=== PATIENT | female | born 1990 | race Caucasian/White ===

== ENCOUNTER 2016-07-17 03:08 | Emergency (ER) | payer OTHER ==
--- NOTE | 2016-07-17 03:13 | PDOC ---
History of Present Illness - General Chief Complaint: Pain Stated Complaint: RIB PAIN Time Seen by Provider: 07/17/16 03:12 - History of Present Illness Initial Comments: This otherwise healthy 25-year-old woman presents with several day history of right chest wall pain. Patient states that 4 days prior to admission, she felt pain in the lateral mid right chest wall while coughing. The following day, the patient had her usual workout at the gym Patient has a history of nonproductive cough (smokes approximately 4 cigarettes per day) .. No history of fever/wheezing/shortness of breath/upper respiratory infection symptoms. Since the onset of the pain, she has had pain in the same area with movement and deep breathing. Patient denies trauma to the area either prior to onset of pain or subsequently. Patient was socializing with friends tonight; she states she frequently smokes more than normal while socializing and has done so tonight. She felt increased pain in the area and friends convinced her to come to the emergency room for evaluation Story of asthma or other chronic respiratory issues. Past History - Past Medical History Allergies/Adverse Reactions: Allergies Allergy/AdvReac Type Severity Reaction Status Date / Time No Known Drug Allergies Allergy Verified 07/17/16 03:10 raw vegetable Allergy Verified 07/17/16 03:09 Home Medications: Ambulatory Orders NK [No Known Home Medication] 07/17/16 Review of Systems - Review of Systems Able to Perform ROS?: Yes Comments:: 12 point review of systems is negative except for what is noted in the history of present illness *Physical Exam - Physical Exam Comments: GENERAL: Young adult female, alert and oriented 3, in no respiratory distress HEAD: Normal with no signs of trauma. EYES: PERRLA, EOMI, sclera anicteric, conjunctiva clear. ENT: Ears normal, nares patent, oropharynx clear without exudates. Dry mucous membranes. NECK: Normal range of motion, supple without lymphadenopathy, JVD, or masses. LUNGS: Breath sounds equal, clear to auscultation bilaterally. No wheezes, rubs or crackles CHEST WALL: Moderate tenderness right fifth intercostal space mid axillary line ; no crepitus or step offs palpated No other chest wall tenderness HEART:Regular rate and rhythm, normal S1 and S2 without murmur, rub or gallop. ABDOMEN:.normal bowel sounds No guarding,tenderness or rebound.No masses No distention. EXTREMITIES: Normal range of motion, no edema. No clubbing or cyanosis. No erythema, or tenderness. NEUROLOGICAL: Cranial nerves II through XII grossly intact. Normal speech. No focal neurological deficits. MUSCULOSKELETAL: Back non-tender to palpation, no CVA tenderness SKIN: Warm, Dry, normal turgor, no rashes or lesions noted Progress Note - Progress Note Progress Note: 25-year-old female smoker, otherwise healthy, presents with area of tenderness of the right lateral chest wall. Area also is painful with movement and deep breathing. Onset of pain was with coughing 4 days ago. Patient has had no shortness of breath/fever or wheezing. Exam reveals oxygenation of 100% on room air; patient has no evidence of respiratory distress . There is an an area of tenderness in the fifth intercostal space right side midaxillary line. There is no crepitus or step offs and no rubs in the area. Exam is otherwise normal. Clinical presentation most consistent with chest wall/intercostal muscle strain. The patient will be given 600 mg of ibuprofen by mouth now. She should avoid upper body strenuous exercise for the next week. She can take nonsteroidal anti-inflammatory medications or acetaminophen as needed for pain. She should return to the emergency room if she has severe pain or shortness of breath. Otherwise, she should follow-up with her PMD, Dr. Zuniga on TuesdayJuly 21 *DC/Admit/Observation/Transfer Diagnosis at time of Disposition: Muscle strain of chest wall Qualifiers: Encounter type: initial encounter Qualified Code(s): S29.011A - Strain of muscle and tendon of front wall of thorax, initial encounter - Discharge Dispostion Disposition: HOME Condition at time of disposition: Stable - Referrals Referrals: Daniele Zuniga MD [Primary Care Provider] - 07/21/16 - Patient Instructions Printed Discharge Instructions: Muscle Strain Additional Instructions: Avoid strenuous upper body exercise for the next week Avoid smoking Local warmth to area Ibuprofen/naproxen/acetaminophen as needed for pain Follow-up with Dr. Zuniga within the next 4-5 days Return to ER if you have severe pain or shortness of breath
[2016-07-17 03:24] VITALS: BP 126/89; PULSE 106; TEMP 98; BMI 24.4
[2016-07-17] MEDS ORDERED: IBUPROFEN 600 MG TABLET (FP) PO ONE ×2 (03:32→03:33)
== END 2016-07-17 03:38 | disposition home or self-care (01) ==
LOC: FER 03:08
DX: S29.011A Strain of muscle and tendon of front wall of thorax, initial encounter (principal); X58.XXXA Exposure to other specified factors, initial encounter; Y93.9 Activity, unspecified; Y92.9 Unspecified place or not applicable; F17.210 Nicotine dependence, cigarettes, uncomplicated
CPT/HCPCS: 99282-25

== ENCOUNTER 2016-07-17 16:55 | Emergency (ER) | payer BC, OTHER ==
[2016-07-17 17:01] VITALS: BP 119/87; PULSE 77; TEMP 98.1; BMI 24.7
--- NOTE | 2016-07-17 17:06 | PDOC ---
History of Present Illness <Abram Adams - Last Filed: 07/17/16 17:16> - General History Source: Patient Exam Limitations: No Limitations - History of Present Illness Initial Comments: 07/17/16 17:14 The patient is a 25 year old female with no significant past medical history, who is revisiting the ER from last night. She complains of worsening right sided rib pain that began Tuesday. Patient states the pain is intermittent and worsens with any type of movement or talking. Patient states she had a bad cough two weeks ago that lasted about a week. She states the pain first began then but was not as severe. Patient states she had a fever 3 days ago as well. Patient denies chills, abdominal pain, nausea, vomiting, diarrhea, hematochezia. Denies dysuria, frequency, hematuria. <Sai Sumner - Last Filed: 07/17/16 17:21> - General Chief Complaint: Pain Stated Complaint: RT RIBCAGE PAIN Time Seen by Provider: 07/17/16 17:01 Past History - Reproductive History Is Patient Now?: No - Psycho/Social/Smoking Cessation Hx Anxiety: No Suicidal Ideation: No Smoking History: Current every day smoker Have you smoked in the past 12 months: Yes Number of Cigarettes Smoked Daily: 4 Information on smoking cessation initiated: Yes 'Breaking Loose' booklet given: 07/17/16 Hx Alcohol Use: Yes (social) <Abram Adams - Last Filed: 07/17/16 17:16> <Sai Sumner - Last Filed: 07/17/16 17:21> - Past Medical History Allergies/Adverse Reactions: Allergies Allergy/AdvReac Type Severity Reaction Status Date / Time No Known Drug Allergies Allergy Verified 07/17/16 16:58 raw vegetable Allergy Verified 07/17/16 16:58 Home Medications: Ambulatory Orders Ibuprofen [Advil -] 200 mg PO ASDIR 07/17/16 Naproxen [Naprosyn] 500 mg PO BID PRN #20 tablet 07/17/16 Review of Systems - Review of Systems Able to Perform ROS?: Yes Comments:: 07/17/16 17:14 CONSTITUTIONAL: Absent: fever, chills, diaphoresis, generalized weakness, malaise, loss of appetite HEENT: Absent: rhinorrhea, nasal congestion, throat pain, throat swelling, difficulty swallowing, mouth swelling, ear pain, eye pain, visual Changes CARDIOVASCULAR: Absent: chest pain, syncope, palpitations, irregular heart rate, lightheadedness , peripheral edema RESPIRATORY: Absent: cough, shortness of breath, dyspnea with exertion, orthopnea, wheezing, stridor, hemoptysis GASTROINTESTINAL: Absent: abdominal pain, abdominal distension, nausea, vomiting, diarrhea, constipation, melena, hematochezia GENITOURINARY: Absent: dysuria, frequency, urgency, hesitancy, hematuria, flank pain, genital pain MUSCULOSKELETAL: Present: Right sided rib pain. Absent: myalgia, joint swelling SKIN: Absent: rash, itching, pallor HEMATOLOGIC/IMMUNOLOGIC: Absent: easy bleeding, easy bruising, lymphadenopathy, frequent infections ENDOCRINE: Absent: unexplained weight gain, unexplained weight loss, heat intolerance, cold intolerance NEUROLOGIC: Absent: headache, focal weakness or paresthesias, dizziness, unsteady gait, seizure, mental status changes, bladder or bowel incontinence PSYCHIATRIC: Absent: anxiety, depression, suicidal or homicidal ideation, hallucinations. <Sai Sumner - Last Filed: 07/17/16 17:21> *Physical Exam - Vital Signs Last Vital Signs Temp Pulse Resp BP Pulse Ox 98.1 F 77 18 119/87 99 07/17/16 16:55 07/17/16 16:55 07/17/16 16:55 07/17/16 16:55 07/17/16 16:55 <Abram Adams - Last Filed: 07/17/16 17:16> - Vital Signs Last Vital Signs Temp Pulse Resp BP Pulse Ox 98.1 F 77 18 119/87 99 07/17/16 16:55 07/17/16 16:55 07/17/16 16:55 07/17/16 16:55 07/17/16 16:55 - Physical Exam Comments: 07/17/16 17:16 GENERAL: Well developed, well nourished. Awake and alert. No acute distress. HEENT: Normocephalic, atraumatic. PERRLA, EOMI. No conjunctival pallor. Sclera are non- icteric. Moist mucous membranes. Oropharynx is clear. NECK: Supple. Full ROM. No JVD. Carotid pulses 2+ and symmetric, without bruits. No thyromegaly. No lymphadenopathy. CARDIOVASCULAR: Regular rate and rhythm. No murmurs, rubs, or gallops. Distal pulses are 2+ and symmetric. Diffuse right lateral chest wall tenderness over the ribs and interior costal muscles. PULMONARY: No evidence of respiratory distress. Lungs clear to auscultation bilaterally. No wheezing, rales or rhonchi. ABDOMINAL: Soft. Non-tender. Non-distended. No rebound or guarding. No organomegaly. Normoactive bowel sounds. MUSCULOSKELETAL Normal range of motion at all joints. No bony deformities or tenderness. No CVA tenderness. EXTREMITIES: No cyanosis. No clubbing. No edema. No calf tenderness. SKIN: Warm and dry. Normal capillary refill. No rashes. No jaundice. NEUROLOGICAL: Alert, awake, appropriate. Cranial nerves 2-12 intact. No deficits to light touch and temperature in face, upper extremities and lower extremities. No motor deficits in the in face, upper extremities and lower extremities. Normoreflexic in the upper and lower extremities. Normal speech. Toes are down-going bilaterally. Gait is normal without ataxia. PSYCHIATRIC: Cooperative. Good eye contact. Appropriate mood and affect. <Sai Sumner - Last Filed: 07/17/16 17:21> ED Treatment Course - RADIOLOGY Radiology Studies Ordered: Category Date Time Status CHEST PA & LAT [RAD] Stat Radiology 07/17/16 17:01 Ordered <Abram Adams - Last Filed: 07/17/16 17:16> Medical Decision Making - Medical Decision Making 07/17/16 17:05 The patient is well-appearing and in no acute distress She has an area of tenderness that spans several ribs and intercostal spaces in the right lateral chest wall I suspect intercostal muscle strain Will obtain PA and lateral chest x-ray to rule out underlying pulmonary pathology 07/17/16 17:17 Chest x-ray emergency Department interpretation: No acute cardiopulmonary disease, no evidence of fracture Clinical impression: Right-sided intercostal muscle strain I discussed the physical exam findings, ancillary test results and final diagnoses with the patient. I answered all of the patient's questions. The patient was satisfied with the care received and felt comfortable with the discharge plan and treatment plan. The patient will call their primary care physician within 24 hours to arrange follow-up and will return to the Emergency Department with any new, persistent or worsening symptoms. A portion of this note was documented by scribe services under my direction. I have reviewed the details of the note, within reason, and agree with the documentation with the following case summary and management plan written by me. <Abram Adams - Last Filed: 07/17/16 17:16> *DC/Admit/Observation/Transfer <Abram Adams - Last Filed: 07/17/16 17:16> - Attestations Scribe Attestion: 07/17/16 17:21 Documentation prepared by Sai Sumner, acting as director medical economics for Abram Adams MD. <Sai Sumner - Last Filed: 07/17/16 17:21> Diagnosis at time of Disposition: Muscle strain of chest wall - Discharge Dispostion Condition at time of disposition: Stable - Prescriptions Prescriptions: Naproxen [Naprosyn] 500 mg PO BID PRN #20 tablet PRN Reason: Pain - Patient Instructions Printed Discharge Instructions: DI for Muscle Strain Additional Instructions: Return to the emergency department immediately with ANY new, persistent or worsening symptoms. You MUST call and follow up with your doctor tomorrow. Please make sure your doctor reviews the results of your emergency department evaluation.
== END 2016-07-17 17:30 | disposition home or self-care (01) ==
LOC: FER 16:55
DX: S29.011A Strain of muscle and tendon of front wall of thorax, initial encounter (principal); F17.210 Nicotine dependence, cigarettes, uncomplicated; X58.XXXA Exposure to other specified factors, initial encounter; Y93.9 Activity, unspecified; Y92.9 Unspecified place or not applicable
CPT/HCPCS: 71020-TC; 99283-25

== ENCOUNTER 2022-09-06 14:30 | Emergency (ER) | payer BC ==
[2022-09-06 14:43] VITALS: BP 110/66; PULSE 62; RESP 18; TEMP 98.3; BMI 20.6
[2022-09-06] MEDS ORDERED: SODIUM CHLORIDE 1,000 ML IV STA (15:08)
[2022-09-06 15:46] LABS: HEMOGLOBIN 14.4 G/dL (10.7-15.3); MCH 31.2 pg (25.7-33.7); MCHC 33.6 g/dl (32.0-36.0); MEAN PLT VOLUME 10.3 fl (7.5-11.1); RBC 4.62 10^6/uL (3.60-5.2); RDW 13.7 % (11.6-15.6)
[2022-09-06 15:52] LABS: ALBUMIN 4.6 g/dl (3.4-5.0); BILIRUBIN,TOTAL 0.5 mg/dl (0.2-1); BLOOD UREA NITROGEN 6.4 mg/dl (7-18); CALCIUM 9.4 mg/dl (8.5-10.1); CREATININE 0.8 mg/dl (0.6-1.3); POTASSIUM 4.3 mmol/L (3.5-5.1); SGOT/AST 17.9 U/L (15-37); SGPT/ALT 14.6 U/L (7-52)
[2022-09-06 16:04] LABS: PLATELET ESTIMATE ADEQUATE
[2022-09-06 16:12] LABS: EPITHELIAL CELLS FEW /hpf
== END 2022-09-06 17:30 | disposition home or self-care (01) ==
LOC: FER 14:30
PROC: 3E0337Z Introduction of Electrolytic and Water Balance Substance into Peripheral Vein, Percutaneous Approach (ICD-10-PCS; principal; 2022-09-06)
DX: R11.2 Nausea with vomiting, unspecified (principal); R19.7 Diarrhea, unspecified; R10.12 Left upper quadrant pain; K52.9 Noninfective gastroenteritis and colitis, unspecified
CPT/HCPCS: 36415; 74177-TC; 80053; 81003; 81015; 83690; 84703; 85027; Q9967